=== PATIENT | male | born 1970 | race American Indian/Alaskan Native ===

== ENCOUNTER 2017-01-07 08:57 | Emergency (ER) | payer MEDICARE ==
[2017-01-07 09:20] LABS: Hematocrit 36.3 % (35.5-45.6); Hemoglobin 11.9 gm/dl (11.8-15.2); Mean Corpuscular HGB Conc 33 % (32-34); Platelet Count 268 K/mm3 (140-440); Red Blood Count 5.29 M/mm3 (3.65-5.03); White Blood Count 13.5 K/mm3 (4.5-11.0)
[2017-01-07 09:26] LABS: Mean Corpuscular Hemoglobin 23 pg (28-32); Mean Corpuscular Volume 69 fl (84-94); Red Cell Distribution Width 24.6 % (13.2-15.2)
[2017-01-07 09:35] LABS: Alanine Aminotransferase 17 units/L (7-56); Albumin 3.9 g/dL (3.9-5); Albumin/Globulin Ratio 1.3 %; Alkaline Phosphatase 56 units/L (35-129); Anion Gap 15 mmol/L; BUN/Creatinine Ratio 13; Blood Urea Nitrogen 12 mg/dL (9-20); Calcium 9.7 mg/dL (8.4-10.2); Carbon Dioxide 28 mmol/L (22-30); Chloride 103.8 mmol/L (98-107); Glucose 123 mg/dL (75-100); Lipase 51 units/L (13-60); Potassium 3.9 mmol/L (3.6-5.0); Sodium 143 mmol/L (137-145); Total Protein 6.9 g/dL (6.3-8.2)
[2017-01-07 10:04] LABS: Blastocytes % (Manual) 0 %
[2017-01-07 10:05] LABS: Anisocytosis 2+; Diff Status Complete; Hypochromasia 2+; Microcytosis 1+; Platelet Estimate Cons
[2017-01-07 14:41] LABS: Bilirubin,Urine NEG (Negative); Blood,Urine SM (Negative); Ketones,Urine NEG (Negative); Leukocyte Esterase,Urine NEG (Negative); Mucus,Urine FEW /HPF; Nitrite,Urine NEG (Negative); Protein,Urine <15 mg/dL mg/dL (Negative); Urobilinogen,Urine < 2.0 mg/dL (<2.0)
--- NOTE | 2017-01-07 15:27 | Emergency Department Report ---
ED Abdominal Pain HPI - General Chief Complaint: Abdominal Pain Stated Complaint: RIGHT SIDE ABDOMINAL AND BACK PAIN Time Seen by Provider: 01/07/17 15:10 Source: patient Mode of arrival: Ambulatory Limitations: No Limitations - History of Present Illness Initial Comments: 46-year-old male with history of partial nephrectomy with abdominal pain. Patient states she's had 4 days of abdominal pain and nausea vomiting. Patient states his right upper quadrant has been burning and feel fulls. He denies fevers but has had some chills. MD Complaint: abdominal pain -: days(s) (4) Location: RUQ Radiation: none - Related Data Previous Rx's Medication Instructions Recorded Last Taken Type HYDROcodone/APAP 5-325 [[place] 1 each PO Q6HR PRN #10 tablet 01/07/17 Unknown Rx 5-325 mg TAB] Ondansetron [Zofran Odt] 4 mg PO Q8HR #10 tab.rapdis 01/07/17 Unknown Rx Allergies Allergy/AdvReac Type Severity Reaction Status Date / Time No Known Allergies Allergy Unverified 01/07/17 09:06 ED Review of Systems ROS: Stated complaint: RIGHT SIDE ABDOMINAL AND BACK PAIN Other details as noted in HPI Comment: All other systems reviewed and negative Constitutional: denies: chills, fever Eyes: denies: eye pain, eye discharge, vision change ENT: denies: ear pain, throat pain Respiratory: denies: cough, shortness of breath, wheezing Cardiovascular: denies: chest pain, palpitations Endocrine: no symptoms reported Gastrointestinal: denies: abdominal pain, nausea, diarrhea Genitourinary: denies: urgency, dysuria Musculoskeletal: denies: back pain, joint swelling, arthralgia Skin: denies: rash, lesions Neurological: denies: headache, weakness, paresthesias Psychiatric: denies: anxiety, depression Hematological/Lymphatic: denies: easy bleeding, easy bruising ED Past Medical Hx - Past Medical History Previous Medical History?: Yes Hx of Cancer: Yes (kidney cancer) Additional medical history: gastroparesis - Surgical History Past Surgical History?: Yes Hx Cholecystectomy: Yes Additional Surgical History: partical left nephrectomy - Family History Family history: no significant - Medications Home Medications: Home Medications Medication Instructions Recorded Confirmed Last Taken Type HYDROcodone/APAP 5-325 [[place] 1 each PO Q6HR PRN #10 tablet 01/07/17 Unknown Rx 5-325 mg TAB] Ondansetron [Zofran Odt] 4 mg PO Q8HR #10 tab.rapdis 01/07/17 Unknown Rx ED Physical Exam - General Limitations: No Limitations General appearance: alert, in no apparent distress - Head Head exam: Present: atraumatic, normocephalic - Eye Eye exam: Present: normal appearance. Absent: scleral icterus, nystagmus - ENT ENT exam: Present: mucous membranes moist - Neck Neck exam: Present: normal inspection - Respiratory Respiratory exam: Present: normal lung sounds bilaterally. Absent: respiratory distress, wheezes - Cardiovascular Cardiovascular Exam: Present: regular rate, normal rhythm. Absent: systolic murmur, diastolic murmur, rubs, gallop - GI/Abdominal GI/Abdominal exam: Present: soft, tenderness (mild right upper quadrant), normal bowel sounds. Absent: guarding, rebound - Rectal Rectal exam: Present: deferred - Extremities Exam Extremities exam: Present: normal inspection - Back Exam Back exam: Present: normal inspection - Neurological Exam Neurological exam: Present: alert, oriented X3 - Psychiatric Psychiatric exam: Present: normal affect, normal mood - Skin Skin exam: Present: warm, dry, intact, normal color. Absent: rash ED Course Vital Signs 01/07/17 01/07/17 01/07/17 09:03 09:05 14:22 Temperature 98.4 F Pulse Rate 109 H Respiratory 16 Rate Blood Pressure 164/112 164/112 O2 Sat by Pulse 98 99 Oximetry 01/07/17 01/07/17 01/07/17 14:30 14:46 15:00 Temperature Pulse Rate Respiratory Rate Blood Pressure 128/85 128/85 135/89 O2 Sat by Pulse 98 100 100 Oximetry 01/07/17 01/07/17 15:16 15:30 Temperature Pulse Rate Respiratory Rate Blood Pressure 135/89 153/112 O2 Sat by Pulse 100 99 Oximetry ED Medical Decision Making - Lab Data Result diagrams: 01/07/17 09:11 01/07/17 09:11 Laboratory Results - last 24 hr 01/07/17 01/07/17 01/07/17 09:11 09:11 14:25 WBC 13.5 H RBC 5.29 H Hgb 11.9 Hct 36.3 MCV 69 L MCH 23 L MCHC 33 RDW 24.6 H Plt Count 268 Add Manual Diff Complete Total Counted 100 Seg Neuts % (Manual) 70.0 Band Neutrophils % 0 Lymphocytes % (Manual) 18.0 Reactive Lymphs % (Man) 1.0 Monocytes % (Manual) 8.0 H Eosinophils % (Manual) 2.0 Basophils % (Manual) 1.0 Metamyelocytes % 0 Myelocytes % 0 Promyelocytes % 0 Blast Cells % 0 Nucleated RBC % Not Reportable Seg Neutrophils # Man 9.5 H Band Neutrophils # 0.0 Lymphocytes # (Manual) 2.4 Abs React Lymphs (Man) 0.1 Monocytes # (Manual) 1.1 H Eosinophils # (Manual) 0.3 Basophils # (Manual) 0.1 Metamyelocytes # 0.0 Myelocytes # 0.0 Promyelocytes # 0.0 Blast Cells # 0.0 WBC Morphology Not Reportable Hypersegmented Neuts Not Reportable Hyposegmented Neuts Not Reportable Hypogranular Neuts Not Reportable Smudge Cells Not Reportable Toxic Granulation Not Reportable Toxic Vacuolation Not Reportable Dohle Bodies Not Reportable Pelger-Huet Anomaly Not Reportable Jed Rods Not Reportable Platelet Estimate Cons Clumped Platelets Not Reportable Plt Clumps, EDTA Not Reportable Large Platelets Not Reportable Giant Platelets Not Reportable Platelet Satelliting Not Reportable Plt Morphology Comment Not Reportable RBC Morphology Not Reportable Dimorphic RBCs Not Reportable Polychromasia Not Reportable Hypochromasia 2+ Poikilocytosis Not Reportable Anisocytosis 2+ Microcytosis 1+ Macrocytosis Not Reportable Spherocytes Not Reportable Pappenheimer Bodies Not Reportable Sickle Cells Not Reportable Target Cells Not Reportable Tear Drop Cells Not Reportable Ovalocytes Not Reportable Helmet Cells Not Reportable Singh-Castine Bodies Not Reportable Butternut Rings Not Reportable Evens Cells Not Reportable Bite Cells Not Reportable Crenated Cell Not Reportable Elliptocytes Not Reportable Acanthocytes (Spur) Not Reportable Rouleaux Not Reportable Hemoglobin C Crystals Not Reportable Schistocytes Not Reportable Malaria parasites Not Reportable Elio Bodies Not Reportable Hem Pathologist Commnt No Sodium 143 Potassium 3.9 Chloride 103.8 Carbon Dioxide 28 Anion Gap 15 BUN 12 Creatinine 0.9 Estimated GFR > 60 BUN/Creatinine Ratio 13 Glucose 123 H Calcium 9.7 Total Bilirubin 0.20 AST 14 ALT 17 Alkaline Phosphatase 56 Total Protein 6.9 Albumin 3.9 Albumin/Globulin Ratio 1.3 Lipase 51 Urine Color Yellow Urine Turbidity Clear Urine pH 5.0 Ur Specific [place] 1.019 Urine Protein <15 mg/dl Urine Glucose (UA) Neg Urine Ketones Neg Urine Blood Sm Urine Nitrite Neg Urine Bilirubin Neg Urine Urobilinogen < 2.0 Ur Leukocyte Esterase Neg Urine WBC (Auto) 1.0 Urine RBC (Auto) 2.0 U Epithel Cells (Auto) < 1.0 Hyaline Casts 1 Urine Mucus Few - Medical Decision Making 46-year-old male here with complaint of right upper quadrant pain. Patient is in pain for days. He is a slight elevation in his white blood cell count. Plan to CT his abdomen with IV contrast to assess his right upper quadrant. According the patient does not have his gallbladder anymore. CT negative. Discussed and have the patient follow up with his primary care for pain control and further evaluation with gastroenterology if necessary. Portions of this chart were dictated with dictation software. There may be dictation errors contained within this note. Critical care attestation.: If time is entered above; I have spent that time in minutes in the direct care of this critically ill patient, excluding procedure time. ED Disposition Clinical Impression: Abdominal pain Disposition: DC-01 TO HOME OR SELFCARE Is pt being admited?: No Condition: Stable Instructions: Acute Abdominal Pain (ED) Prescriptions: HYDROcodone/APAP 5-325 [[place] 5-325 mg TAB] 1 each PO Q6HR PRN #10 tablet PRN Reason: Pain Ondansetron [Zofran Odt] 4 mg PO Q8HR #10 tab.rapdis Referrals: PRIMARY CARE, [Primary Care Provider] - 3-5 Days
[2017-01-07] MEDS ORDERED: ZOFRAN ONE (15:48)
[2017-01-07] MEDS ORDERED: ZOFRAN IV ONE (15:48)
[2017-01-07] MEDS ORDERED: MORPHINE IV ONE ×2 (15:48→17:30)
[2017-01-07] MEDS ORDERED: MORPHINE ONE (15:48)
[2017-01-07 15:51] VITALS: BP 153/112
--- NOTE | 2017-01-07 17:19 | Cat Scan Report ---
FINAL REPORT PROCEDURE: CT abdomen and pelvis with contrast. TECHNIQUE: Computerized axial tomography of the abdomen and pelvis was performed after the IV injection of iodinated nonionic contrast. HISTORY: Right upper quadrant abdominal pain. COMPARISON: No prior studies are available for comparison. FINDINGS: The lung bases are clear. There are no pleural effusions. The heart size is normal. The liver, pancreas and spleen appear normal. Cholecystectomy clips are present. There is no biliary dilatation. The adrenal glands are not enlarged. Both kidneys appear normal in size and configuration. The abdominal aorta has a normal caliber. There is no retroperitoneal adenopathy. The unopacified gastrointestinal tract is unremarkable. A normal appendix is visible. The bladder is empty. The seminal vesicles and prostate are unremarkable. The regional skeleton appears intact. IMPRESSION: Previous cholecystectomy. No definite signs of acute disease in the abdomen or pelvis.
== END 2017-01-07 18:06 | disposition home or self-care (01) ==
LOC: ED 08:57
DX: R10.11 Right upper quadrant pain (principal); C64.9 Malignant neoplasm of unspecified kidney, except renal pelvis; Z90.49 Acquired absence of other specified parts of digestive tract
CPT/HCPCS: 36415; 74177; 80053; 81001; 83690; 85007; 85025; 96374; 96375; 96376; 99284; J2270; J2405; Q9967

== ENCOUNTER 2017-10-22 09:36 | Day surgery (SDC) | payer MEDICARE ==
[2017-10-22] MEDS ORDERED: WATER FOR IRRIG STERILE IR ONE (10:01)
--- NOTE | 2017-10-22 10:31 | Anesthesia Day of Surgery ---
Anesthesia Day of Surgery - Day of Surgery Patient Examined: Yes Patient H&P Reviewed: Yes Patient is NPO: Yes Beta Blockers: No
--- NOTE | 2017-10-22 10:32 | Anesthesia Consultation ---
Anesthesia Consult and Med Hx - Airway Anesthetic Teeth Evaluation: Good ROM Head & Neck: Adequate Mental/Hyoid Distance: Adequate Mallampati Class: Class II Intubation Access Assessment: Probably Good - Pulmonary Exam CTA: Yes - Cardiac Exam Cardiac Exam: No Murmur - Pre-Operative Health Status ASA Pre-Surgery Classification: ASA2 Proposed Anesthetic Plan: MAC - Pulmonary Hx Smoking: Yes Hx Asthma: No Hx Respiratory Symptoms: No SOB: No COPD: No Home Oxygen Therapy: No Hx Pneumonia: No Hx Sleep Apnea: No - Cardiovascular System Hx Hypertension: No Hx Coronary Artery Disease: No Hx Heart Attack/AMI: No Hx Angina: No Hx Percutaneous Transluminal Coronary Angioplasty (PTCA): No Hx Cardia Arrhythmia: No Hx Pacemaker: No Hx Internal Defibrillator: No Hx Valvular Heart Disease: No Hx Heart Murmur: No Hx Peripheral Vascular Disease: No - Central Nervous System Hx Neuromuscular Disorder: No Hx Seizures: No CVA: No Hx Back Pain: No Hx Psychiatric Problems: No - Gastrointestinal Hx Ulcer: No Hx Gastroesophageal Reflux Disease: No - Endocrine Hx Renal Disease: No Hx End Stage Renal Disease: No Hx Cirrhosis: No Hx Liver Disease: No Hx Insulin Dependent Diabetes: No Hx Non-Insulin Dependent Diabetes: No Hx Thyroid Disease: No Hx Hypothyroidism: No Hx Hyperthyroidism: No - Hematic Hx Anemia: No Hx Sickle Cell Disease: No - Other Systems Hx Alcohol Use: No Hx Substance Use: No Hx Cancer: Yes
[2017-10-22] MEDS ORDERED: DIPRIVAN 10 MG/ML IV ONE (10:47)
[2017-10-22] MEDS ORDERED: XYLOCAINE 2% INFILTRATI ONE (10:49)
[2017-10-22] MEDS ORDERED: NACL 0.9% 1000 ML 1,000 ML IV SCH (11:00)
--- NOTE | 2017-10-22 11:15 | Operative Report ---
Operative Report Operative Report: Date: 10/22/2017 Operative Report: Date of procedure: 10/22/2017 Procedure: Esophagogastroduodenoscopy with multiple mucosal biopsies. Attending physician: Sav Jackson MD [employer] Salesperson: Sav Jackson MD Indication: Patient is a 47 -year-old male who presented with a history of recurrent epigastric pain, heartburn and indigestion. An upper endoscopy is done to assess patient, so that treatment may be directed based on the findings. Consent: Informed consent was obtained after advising the patient and family regarding nature of this procedure, its indications, potential benefits as well as possible complications including but not limited to bleeding perforation and adverse reaction to medication, infection as well as other cardiopulmonary complications. An informed written and verbal consent was then obtained after due opportunity was provided for questions and answers. Monitoring: Patient was monitored continuously with pulse oximetry and electrocardiographic recordings as well as blood pressure recordings. Vital signs remained stable throughout this procedure with no untoward events. Preoperative assessment: Patient was assessed immediately prior to this procedure for capacity to tolerate monitored anesthesia care and moderate sedation as well as general anesthesia. Patient's ASA classification is 2, Mallampati class is 2, Hyomental distance is 3. Instrument: [employer] video endoscope Medications: Propofol given intravenously in divided doses. For details please refer to anesthesia records. Description of procedure: Patient was placed in the left lateral decubitus position after achieving sedation, the endoscope was introduced into the esophagus under direct vision. It was then advanced beyond the esophagus into the stomach and then beyond the stomach into the duodenum and to the second portion of the duodenum. It was subsequently withdrawn with careful inspection of all mucosal surfaces with the following findings. Findings: Patient had severe erosive esophagitis involving the distal esophagus. There was a small diminutive sliding hiatal hernia seen on entry into the stomach. There was erythema in the gastric antrum with erosions. There was substantial retained gastric contents in the gastric body and in the gastric cardia. Biopsies of the antrum were obtained for histopathology. In the duodenal bulb, patient had severe erosive duodenitis with circumferential erosions in the proximal bulb. The second portion of the duodenum was normal. Impression: Severe erosive esophagitis. Hiatal hernia Gastric antral erythema Severe erosive gastritis Retained contents in the stomach Severe erosive duodenitis. Plan: Continue treatment with proton pump inhibitors. Follow pathology report. Direct additional treatment based on the pathology report. Consider gastric emptying study to rule out underlying gastroparesis. Patient will be observed clinically. Additional recommendations will be made follow-up.
--- NOTE | 2017-10-22 11:16 | Discharge Summary ---
Short Stay Discharge Plan Activity: advance as tolerated Weight Bearing Status: Weight Bear as Tolerated Diet: regular Additional Instructions: Post Sedation D/C Instructions When you return home you may resume your regular diet unless otherwise directed. -Go directly home from the hospital and rest quietly. You may resume normal activities tomorrow. -Do NOT drive, return to work, operate any machinery or make any important personal or business decisions today. -Do NOT drink any alcohol or take nerve or sleeping drugs. They add to the effects of the medicine still present in your body. Follow up with Dr. Jackson in 2 weeks to obtain pathology results and treatment plan. Follow up with: PRIMARY CARE, [Primary Care Provider] - 7 Days
[2017-10-22 11:41] VITALS: BP 121/82
== END 2017-10-22 09:37 | disposition home or self-care (01) ==
LOC: GIO 09:36
PROVIDERS: ATTEND Internal Medicine Gastroenterology
DX: K52.89 Other specified noninfective gastroenteritis and colitis (principal); K21.0 Gastro-esophageal reflux disease with esophagitis; K29.90 Gastroduodenitis, unspecified, without bleeding; K44.9 Diaphragmatic hernia without obstruction or gangrene; F41.9 Anxiety disorder, unspecified; F32.9 Major depressive disorder, single episode, unspecified; K21.9 Gastro-esophageal reflux disease without esophagitis; I10 Essential (primary) hypertension; F17.210 Nicotine dependence, cigarettes, uncomplicated; Z85.53 Personal history of malignant neoplasm of renal pelvis; Z83.3 Family history of diabetes mellitus; Z82.49 Family history of ischemic heart disease and other diseases of the circulatory system; Z80.51 Family history of malignant neoplasm of kidney; Z90.49 Acquired absence of other specified parts of digestive tract; Z90.5 Acquired absence of kidney
CPT/HCPCS: 43239; 88305; 88342; J2704; J7030